=== PATIENT | female | born 1995 | race Caucasian/White ===

== ENCOUNTER 2022-01-11 22:22 | Emergency (ER) | payer OTHER ==
[~2022-01-11] VITALS: Ht 165.1 cm; Wt 117.9 kg
[2022-01-11 22:25] VITALS: BP 138/79
[2022-01-11] MEDS ORDERED: NACL 0.9% 1,000 ML IV SCH (22:55)
[2022-01-11] MEDS ORDERED: KETOROLAC 30 MG/ML VIAL IVP ONE (22:55)
[2022-01-11] MEDS ORDERED: ONDANSETRON 4 MG/2 ML VIAL IVP ONE (22:55)
[2022-01-11] MEDS ORDERED: ONDA8TAB87 PO (23:04)
[2022-01-11] MEDS ORDERED: CIPR500T4 PO (23:04)
[2022-01-11] MEDS ORDERED: IBUP-2213 PO (23:04)
[2022-01-12 00:07] VITALS: BP 138/79
== END 2022-01-12 00:07 | disposition home or self-care (01) ==
LOC: MED 22:22
DX: R10.13 Epigastric pain (principal); R11.2 Nausea with vomiting, unspecified; R19.7 Diarrhea, unspecified
CPT/HCPCS: 81002; 81025; 96361; 96374; 96375; 99284; J1885; J2405; J7030

== ENCOUNTER 2022-09-13 16:44 | Emergency (ER) | payer OTHER ==
[~2022-09-13] VITALS: Ht 165.1 cm; Wt 121.6 kg
[~2022-09-13 16:44] MED LIST: CIPR500T4 PO; IBUP-2213 PO; ONDA8TAB87 PO
[2022-09-13 16:56] VITALS: BP 139/96
[2022-09-13] MEDS ORDERED: IBUP-2213 PO (18:39)
--- NOTE | 2022-09-13 19:50 | NUR ---
MEDICATED PER PA ORDER, TOLERATED WELL.
[2022-09-13] MEDS: KETOROLAC 30 MG/ML VIAL IM ONE (20:03)
[2022-09-13 20:19] VITALS: BP 127/82
--- NOTE | 2022-09-13 20:19 | NUR ---
Patient discharged with v/s stable. Written and verbal after care instructions given. Patient alert, oriented and verbalized understanding of instructions. Ambulatory with steady gait. All questions addressed prior to discharge. ID band removed. Patient advised to follow up with PMD. Rx of Ibuprofen given. Opportunity to ask questions provided and answered.
--- NOTE | 2022-09-13 20:19 | NUR ---
Chart checked and completed.
== END 2022-09-13 20:19 | disposition home or self-care (01) ==
LOC: MED 16:44
DX: S60.011A Contusion of right thumb without damage to nail, initial encounter (principal); Z79.899 Other long term (current) drug therapy; W19.XXXA Unspecified fall, initial encounter; Y93.89 Activity, other specified; Y92.89 Other specified places as the place of occurrence of the external cause; Y99.8 Other external cause status
CPT/HCPCS: 73140; 96372; 99283; J1885

== ENCOUNTER 2024-06-14 13:55 | Emergency (ER) | payer SELFPAY ==
[~2024-06-14] VITALS: Ht 165.1 cm; Wt 129.3 kg
[2024-06-14 14:09] VITALS: BP 126/78; PULSE 89; RESP 18; TEMP 98.3; O2SAT 100
[2024-06-14 14:20] VITALS: BP 121/67; PULSE 97; RESP 16; O2SAT 98
[2024-06-14] MEDS: METOCLOPRAMIDE 10 MG/2 ML INJ VIAL IM ONE (15:01)
[2024-06-14] MEDS: KETOROLAC 30 MG/ML VIAL IM ONE (15:02)
[2024-06-14] MEDS: ACETAMINOPHEN EXTRA STRENGTH 500 MG TAB PO ONE (15:03)
[2024-06-14] MEDS ORDERED: PRED20TA5 PO (15:44)
[2024-06-14] MEDS ORDERED: POLY15SO74 OP (15:44)
[2024-06-14] MEDS: SUMAtriptan succinate 50 MG TAB PO ONE (15:47)
[2024-06-14] MEDS ORDERED: AMOX1TAB8 PO (15:49)
== END 2024-06-14 15:57 | disposition home or self-care (01) ==
LOC: MED 13:55
DX: J32.9 Chronic sinusitis, unspecified (principal); Z79.1 Long term (current) use of non-steroidal anti-inflammatories (NSAID); Z79.2 Long term (current) use of antibiotics; Z79.899 Other long term (current) drug therapy
CPT/HCPCS: 70450; 96372; 99285; J1885; J2765